=== PATIENT | female | born 1975 | race Caucasian/White ===

== ENCOUNTER 2018-02-28 12:25 | Inpatient (IN) | payer BC ==
[2018-02-28] MEDS ORDERED: Iohexol 300 MG/ML 30 ML Bottle PO ONE (12:54)
[2018-02-28] MEDS ORDERED: Sodium Chloride 0.9% 10 ML Syringe FLUSH ONE (13:03)
[2018-02-28] MEDS ORDERED: Sodium Chloride 0.9% 100 ML IV ONE (13:03)
[2018-02-28] MEDS ORDERED: Iopamidol 612 MG/ML 100 ML Bottle IV SCH (13:15)
[2018-02-28] MEDS ORDERED: Naloxone 0.4 MG/ML SDV IV PRN (13:22)
[2018-02-28] MEDS ORDERED: HYDROmorphone/Normal Saline 15 MG/30 ML PCA IV PRN (13:22)
[2018-02-28] MEDS ORDERED: Acetaminophen 650 MG Supp RECTAL PRN (13:33)
[2018-02-28] MEDS ORDERED: Acetaminophen 325 MG Tab PO PRN (13:34)
[2018-02-28] MEDS: Dextrose 5%-Lactated Ringers 1,000 ML IV SCH ×2 (13:49→22:23)
[2018-02-28] MEDS: Ondansetron 4 MG/2 ML SDV IVPUSH PRN ×2 (13:56→16:32)
[2018-02-28] MEDS: Pantoprazole 40 MG Vial IV SCH (14:46)
[2018-02-28] MEDS ORDERED: Tamsulosin 0.4 MG Cap.ER PO PRN (16:01)
[2018-02-28] MEDS ORDERED: Acetaminophen/Caffeine 500-65 MG Tab PO PRN (16:01)
[2018-02-28] MEDS ORDERED: MVI, Adult with Vitamin K 10 ML, Thiamine 100 MG, Magnesium Sulfate 2 GM, Folic Acid 1 ... IV ONE ×5 (16:03)
--- NOTE | 2018-02-28 16:03 | CT ---
Abdomen Pelvis w Cont CLINICAL HISTORY: Partial small bowel obstruction COMPARISON: None. TECHNIQUE: Axial tomographic images are obtained from the dome of the diaphragm to the pubic symphysi s without IV contrast enhancement. Water soluble oral contrast was used. Auto dosage reduction and it erative reconstruction techniques employed. FINDINGS: The lung bases are clear. The liver shows no mass or biliary dilatation. The gallbladder co ntains some biliary sludge. The spleen has a normal size and shape. Patient has had a previous [place]-Y gastric bypass. The there is no evidence of obstruction. There is a segment of thickened bowel in the anterior mid abdomen which appears to be transverse colon. The there is impression of some enhan cement of the bowel wall. The the ascending and descending colon have a normal appearance. Anterior a bdominal wall is intact. The pancreas shows no inflammatory change. The adrenal glands appear normal bilaterally. The kidneys show no mass or hydronephrosis. There are prominent extrarenal pelvises. The aorta has a normal conto ur. There is no suspicious retroperitoneal adenopathy. IMPRESSION: Patient is status post the [place]-en-Y gastric bypass. There is no evidence of obstruction Thickening and some enhancement of the transverse colon suggests colitis. Ascending and descending co fer as well as rectosigmoid colon have a more normal normal contour.
[2018-02-28] MEDS: Metoclopramide 10 MG/2 ML SDV IV SCH ×2 (17:10→22:23)
--- NOTE | 2018-02-28 18:49 | PCM.HP ---
H&P History of Present Illness - General Date of Service: 02/28/18 Admit Problem/Dx: Source of Information: Patient, RN Notes Reviewed History Limitations: Reports: No Limitations - History of Present Illness Initial Comments - Free Text/Narative: Ms. Aguero is a 42-year-old woman who I been asked to see by Dr. Aguilar for further suggestions concerning evaluation and management of abdominal pain. Pain started yesterday and was described as a dull ache occurring in her right upper quadrant of the abdomen. Through the day progressed and became more intense and then she began to develop nausea with vomiting. She was seen and evaluated in the emergency department in [facility], CT scan was obtained which showed no acute abnormalities. After hydration and pain medication she did feel somewhat improved. She was discharged home, with the recommendation that she be seen for follow-up today. When she awoke this morning noted that she had an ongoing dull ache in the right upper quadrant of her abdomen, she attempted to eat a of toast. Pain rapidly became more intense again and associated with nausea and vomiting. She was seen and evaluated in the bariatric clinic and admitted for hydration and pain control. She has had one bowel movement in the past 36 hours which was somewhat loose, but no blood. She denies any fevers or chills but has had intermittent sweats. She is recently been taking prednisone for management of poison angelina, but has not taken antibiotics over the past [address] scan of the abdomen and pelvis was repeated today, it shows thickening in the transverse colon but no other significant abnormalities. Abdomen Pain Score (Numeric/FACES): 5 - Related Data Allergies/Adverse Reactions: Allergies Allergy/AdvReac Type Severity Reaction Status Date / Time erythromycin lactobionate Allergy Other Verified 11/26/15 10:24 [From Erythrocin] latex Allergy Rash Verified 11/28/15 08:06 prednisone Allergy Cannot Verified 02/28/18 15:13 Remember environmental Allergy Intermediate Itching Uncoded 02/28/18 15:13 Home Medications: Home Meds Acetaminophen/Caffeine [Excedrin Tension Headache] 1 tab PO DAILY PRN 11/26/15 [ History] Ergocalciferol (Vitamin D2) [Vitamin D2] 50,000 unit PO ASDIRECTED 11/26/15 [ History] Naproxen Sodium [Aleve] 440 mg PO DAILY PRN 11/26/15 [History] SUMAtriptan Succinate [Imitrex] 100 mg PO ASDIRECTED PRN 11/26/15 [History] Cyanocobalamin (Vitamin B12) [Vitamin B12] 1,000 mcg PO DAILY 11/28/15 [History] Multivitamin with Minerals [Multiple Vitamin] 1 tab PO DAILY 11/28/15 [History] Tamsulosin [Tamsulosin 24 Hr] 0.4 mg PO DAILY PRN 11/28/15 [History] predniSONE [Prednisone] 30 mg PO DAILY 02/28/18 [History] Past Medical History HEENT History: Reports: Impaired Vision Cardiovascular History: Reports: High Cholesterol, Hypertension Respiratory History: Reports: Bronchitis, Recurrent, Sleep Apnea Gastrointestinal History: Reports: Chronic Constipation Genitourinary History: Reports: UTI, Recurrent 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 History: Reports: Endometriosis, Musculoskeletal History: Reports: Arthritis, RA Neurological History: Reports: Migraines Psychiatric History: Reports: Anxiety, Depression Endocrine/Metabolic History: Reports: Obesity/BMI 30+ Hematologic History: Reports: B12 Deficiency Immunologic History: Reports: Other (See Below) Other Immunologic History: RA - Infectious Disease History Infectious Disease History: Reports: Chicken Pox, Shingles - Past Surgical History GI Surgical History: Reports: Bariatric Procedure Female Surgical History: Reports: Hysterectomy Endocrine Surgical History: Reports: None Neurological Surgical History: Reports: None Musculoskeletal Surgical History: Reports: None Social & Family History - Tobacco Use Smoking Status *Q: Never Smoker Second Hand Smoke Exposure: No - Caffeine Use Caffeine Use: Reports: None - Recreational Drug Use Recreational Drug Use: No H&P Review of Systems - Review of Systems: Review Of Systems: See Below General: Reports: Weakness, Diaphoresis, Decreased Appetite. Denies: Fever, Chills HEENT: Reports: No Symptoms Pulmonary: Reports: No Symptoms Cardiovascular: Reports: No Symptoms Gastrointestinal: Reports: Abdominal Pain, Decreased Appetite, Nausea, Vomiting. Denies: Black Stool, Bloody Stool, Constipation, Diarrhea, Difficulty Swallowing, Distension Genitourinary: Reports: No Symptoms Musculoskeletal: Reports: Joint Pain Skin: Reports: No Symptoms Psychiatric: Reports: No Symptoms Neurological: Reports: No Symptoms Hematologic/Lymphatic: Reports: No Symptoms Immunologic: Reports: No Symptoms Exam - Exam Exam: See Below - Vital Signs Vital Signs: Last Vital Signs Temp 96.4 F 02/28/18 16:28 Pulse 91 02/28/18 16:28 Resp 18 02/28/18 16:28 BP 150/94 H 02/28/18 16:28 Pulse Ox 98 02/28/18 16:28 Weight: 163 lb 1.6 oz - Exam Quality Assessment: DVT Prophylaxis General: Alert, Oriented, Cooperative, Moderate Distress Neck: Supple, Trachea Midline, +2 Carotid Pulse wo Bruit Lungs: Clear to Auscultation, Normal Respiratory Effort Cardiovascular: Regular Rate, Regular Rhythm, Normal S1, Normal S2 GI/Abdominal Exam: Soft, No Organomegaly, No Distention, Guarding, Tender. No: Rigid, Rebound Back Exam: Normal Inspection, Full Range of Motion Extremities: Non-Tender, No Pedal Edema - Patient Data Lab Results Last 24 hrs: Laboratory Results - last 24 hr 02/28/18 02/28/18 Range/Units 13:17 13:17 WBC 9.9 (4.5-11.0) K/uL RBC 4.62 (3.30-5.50) M/uL Hgb 14.1 (12.0-15.0) g/dL Hct 40.8 (36.0-48.0) % MCV 88 (80-98) fL MCH 31 (27-31) pg MCHC 35 (32-36) % Plt Count 344 (150-400) K/uL Neut % (Auto) 75 H (36-66) % Lymph % (Auto) 22 L (24-44) % Milam % (Auto) 3 (2-6) % Eos % (Auto) 0 L (2-4) % Baso % (Auto) 0 (0-1) % Sodium 141 (140-148) mmol/L Potassium 4.0 (3.6-5.2) mmol/L Chloride 106 (100-108) mmol/L Carbon Dioxide 27 (21-32) mmol/L Anion Gap 7.8 (5.0-14.0) mmol/L BUN 12 (7-18) mg/dL Creatinine 0.8 (0.6-1.0) mg/dL Est Cr Clr Drug Dosing 74.23 mL/min Estimated GFR (MDRD) > 60 (>60) Glucose 103 (74-106) mg/dL Calcium 8.3 L (8.5-10.1) mg/dL Phosphorus 3.3 (2.5-4.9) mg/dL Magnesium 2.0 (1.8-2.4) mg/dL Total Bilirubin 0.5 (0.2-1.0) mg/dL AST 12 L (15-37) U/L ALT 23 (12-78) U/L Alkaline Phosphatase 83 (46-116) U/L C-Reactive Protein 0.11 (0.0-0.3) mg/dL Total Protein 6.6 (6.4-8.2) g/dL Albumin 3.5 (3.4-5.0) g/dL Globulin 3.1 (2.3-3.5) g/dL Albumin/Globulin Ratio 1.1 L (1.2-2.2) Result Diagrams: 02/28/18 13:17 02/28/18 13:17 *Q Meaningful Use (ADM) - VTE *Q VTE Pharmacological Contraindications *Q: Patient Scheduled Surgery - VTE Risk Assess *Q Each Risk Factor Represents 1 Point: Age 41 - 59 years, Obesity ( BMI > 25 kg/m2 ) Total Score 1 Point Risk Factors: 2 Each Risk Factor Represents 2 Points: None Total Score 2 Point Risk Factors: 0 Each Risk Factor Represents 3 Points: None Total Score 3 Point Risk Factors: 0 Each Risk Factor Represents 5 Points: None Total Score 5 Point Risk Factors: 0 Venous Thromboembolism Risk Factor Score *Q: 2 Problem List Initiated/Reviewed/Updated: Yes Orders Last 24hrs: Active Orders 24 hr Category Date Time Status Patient Status [ADT] Routine ADT 02/28/18 11:55 Active Intake and Output Strict [RC] QSHIFT Care 02/28/18 16:04 Active Notify Provider Consults [RC] ASDIRECTED Care 02/28/18 16:56 Active Overnight Pulse Oximetry [RC] Click to Edit Care 02/28/18 17:52 Active Up ad Michelle [RC] ASDIRECTED Care 02/28/18 12:52 Active Vital Signs [RC] Q4H Care 02/28/18 12:52 Active Consult to Physician [CONS] Urgent Cons 02/28/18 16:52 Ordered Cholescintigraphy w Pharm Int [NM] Timed Exams 02/28/18 16:51 Ordered Acetaminophen [Tylenol] Med 02/28/18 13:34 Active 650 mg PO Q4H PRN Acetaminophen [Tylenol] Med 02/28/18 13:33 Active 650 mg RECTAL Q4H PRN Acetaminophen/Caffeine [Excedrin Tension Headache] Med 02/28/18 16:01 Active 1 tab PO DAILY PRN Ampicillin/Sulbactam Na [Unasyn] 1.5 gm Med 02/28/18 18:45 Ordered Sodium Chloride 0.9% [Normal Saline] 50 ml IV Q6HR Aztreonam [Azactam] 1 gm Med 02/28/18 22:00 Ordered Sodium Chloride 0.9% [Normal Saline] 100 ml IV Q8HR Dextrose 5%-Lactated Ringers 1,000 ml Med 02/28/18 13:45 Active IV ASDIRECTED HYDROmorphone/Normal Saline [Dilaudid CHALK CUTTER 15 MG in NS Med 02/28/18 13:22 Active 30 ML] 0 mg IV ASDIRECTED PRN Metoclopramide [Reglan] Med 02/28/18 17:00 Active 10 mg IV Q6H Naloxone [Narcan] Med 02/28/18 13:22 Active 0.1 mg IV ASDIRECTED PRN Ondansetron [Zofran] Med 02/28/18 13:35 Active 4 mg IVPUSH Q4H PRN Pantoprazole [ProTONIX IV] Med 02/28/18 14:00 Active 40 mg IV Q24H SUMAtriptan Med 02/28/18 16:01 Active 100 mg PO ASDIRECTED PRN Tamsulosin [Flomax] Med 02/28/18 16:01 Active 0.4 mg PO DAILY PRN Pulse Oximetry Continuous Monitoring [OM.PC] Routine Oth 02/28/18 17:52 Ordered Sequential Compression Device [OM.PC] Routine Oth 02/28/18 12:52 Ordered Resuscitation Status Routine Resus Stat 02/28/18 12:52 Ordered Medication Orders Acetaminophen (Tylenol) 650 mg RECTAL Q4H PRN PRN Reason: ANALGESIA/FEVER Acetaminophen (Tylenol) 650 mg PO Q4H PRN PRN Reason: ANALGESIA/FEVER Acetaminophen/Caffeine (Excedrin Tension Headache) 1 tab PO DAILY PRN PRN Reason: Headache Hydromorphone HCl (Dilaudid Data Virtualization Consultant 15 Mg In Ns 30 Ml) 0 mg IV ASDIRECTED PRN; Protocol PRN Reason: CHALK CUTTER PAIN CONTROL Last Admin: 02/28/18 13:46 Dose: 15 mg Dextrose/Lactated Ringer's (Dextrose 5%-Lactated Ringers) 1,000 mls @ 150 mls/ hr IV ASDIRECTED ASTER Last Admin: 02/28/18 13:49 Dose: 150 mls/hr Metoclopramide HCl (Reglan) 10 mg IV Q6H [facility] Last Admin: 02/28/18 17:10 Dose: 10 mg Naloxone HCl (Narcan) 0.1 mg IV ASDIRECTED PRN PRN Reason: decreased respiratory rate Ondansetron HCl (Zofran) 4 mg IVPUSH Q4H PRN PRN Reason: NAUSEA Last Admin: 02/28/18 16:32 Dose: 4 mg Admin: 02/28/18 13:56 Dose: 4 mg Pantoprazole Sodium (Protonix Iv) 40 mg IV Q24H [facility] Last Admin: 02/28/18 14:46 Dose: 40 mg Sumatriptan Succinate (Sumatriptan) 100 mg PO ASDIRECTED PRN PRN Reason: Headache Tamsulosin HCl (Flomax) 0.4 mg PO DAILY PRN PRN Reason: Allergies Assessment/Plan Comment:: ASSESSMENT AND RECOMMENDATIONS ACUTE CHOLECYSTITIS-symptoms and pain and nausea would be very consistent with this. CT scan shows possible inflammation of the transverse colon but she is not had significant diarrhea, CO2 level and anion gap are within normal range. White blood cell count is normal and no other significant abnormalities were identified on CT scan. -CCK stimulated HIDA scan in a.m. -Initiate IV antibiotic therapy; Unasyn and Azactam -Surgical follow-up per Dr. Aguilar -Continue current pain medications and anti-emetic therapy
[2018-02-28] MEDS: Ampicillin/Sulbactam Na 1.5 GM in Sodium Chloride 0.9% 50 ML IV SCH (19:57)
[2018-02-28] MEDS: Aztreonam 1 GM in Sodium Chloride 0.9% 100 ML IV SCH (22:22)
[2018-03-01] MEDS: Ampicillin/Sulbactam Na 1.5 GM in Sodium Chloride 0.9% 50 ML IV SCH ×5 (01:57→20:46)
[2018-03-01] MEDS: Aztreonam 1 GM in Sodium Chloride 0.9% 100 ML IV SCH (05:32)
[2018-03-01] MEDS: Metoclopramide 10 MG/2 ML SDV IV SCH ×4 (05:32→22:02)
--- NOTE | 2018-03-01 07:15 | HP ---
HISTORY OF PRESENT ILLNESS: Alejandra presented to the clinic today with severe right mid and lower quadrant abdominal pain. She had a sleeve gastrectomy on 11/28/2015 with a weight loss of 41.4 pounds. BMI is 28.62. She had poison angelina on 02/24/2018 and was started on prednisone. She was taking a tapering dose. She states yesterday afternoon around 1:00 p.m., she developed some right-sided abdominal pain, progressively had increased in intensity. She had a friend bring her to the emergency room around 9:30 p.m. She states that she had 1 L of normal saline and IV Dilaudid. It did help the pain for about [address] scan was done that was negative, and she was sent home and told to come back to the clinic if the pain increased. She said the Dilaudid helped for about 4 hours, and then about the time she was ready to leave, the pain came back. She states that she went home, slept pretty good, then called the Surgery Department and felt some dehydration and wanted a 2nd opinion on the pain. She was coming to [place] for IV fluids and prior to leaving [place], ate a half a piece of toast with peanut butter and a few miles from the clinic, the pain increased in intensity to 10/10. She states that the pain is in the mid right quadrant directly to the right of umbilicus. The pain will radiate down a little bit in that area, pretty much stable. It is associated with some nausea and dry heaves. Pain is sharp and intense. Last BM was yesterday. States she stopped passing any flatus last night. Eating did aggravate the pain today. Nothing will alleviate the pain. No other associated signs and symptoms. REVIEW OF SYSTEMS: CONSTITUTIONAL: No fever, chills, night sweats, or fatigue. SKIN: Resolving poison angelina rash on face. Otherwise, no rash, pigment changes, lesions, or changes in moles. HEENT: Denies headache, dizziness, or loss of coordination. CARDIOVASCULAR: No chest pain or palpitation. RESPIRATORY: No cough or shortness of breath. ENDOCRINE: No history of polyuria or polydipsia, skin or hair changes, heat or cold intolerance. HEMATOLOGIC: Iron deficiency anemia. LYMPHATIC: Denies any lymph node tenderness or swelling. GASTROINTESTINAL: As above. GENITOURINARY: No UTI signs and symptoms. MUSCULOSKELETAL: Positive for joint pain and swelling intermittently. History of rheumatoid arthritis. NEUROLOGIC: No neurological symptoms, spells, or memory changes. PSYCHIATRIC: No significant anxiety, depression, or panic attacks. Denies any insomnia. Remainder of review of systems negative for any pertinent positives and negatives. CURRENT MEDICATIONS: Prednisone 30 mg once a day on a tapering dose; Prilosec 40 mg one tablet b.i.d.; vitamin B12, 1000 mcg 1 mL into muscle every 14 days; vitamin D 50,000 international units one capsule on Tuesday, Tuesday, and Tuesday; methotrexate 20 mg/0.4 mL solution, inject 0.8 mg under the skin one time a week; folic acid 1 mg, take 2 mg by mouth once daily; calcium citrate 500/400 mg chewable; pediatric multivitamin chewable, take 1 tablet twice a day. PAST MEDICAL HISTORY: Anxiety, depression, hypertension, hyperlipidemia, joint pain, migraines, sleep apnea, and rheumatoid arthritis. PAST SURGICAL HISTORY: 1. Excision of abdominal tumor over 5 cm, 11/28/2015. 2. Total hysterectomy, 2002. 3. 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 4. Laparoscopic sleeve gastrectomy, date of surgery 11/28/2015. Consult weight 206 pounds. Height 5 feet 3.9 inches. Current weight 166 pounds 3.2 ounces, and BMI is 28.62. 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 Smoking, no history of smoking. Caffeine use, negative. Alcohol use, rare. Carbonation, none. FAMILY HISTORY: Positive for obesity, paternal grandfather. Diabetes, paternal grandfather. Cardiovascular disease, mother and maternal grandmother. Cancer, father and paternal grandfather. Arthritis, maternal grandfather. Hypertension, mother and maternal grandmother. PHYSICAL EXAMINATION: GENERAL: Alejandra Aguero is a pleasant 42-year-old female who is in moderate distress. VITAL SIGNS: Weight 166 pounds. Height is 5 feet 3.9 inches. TPR is 98.4/72/16. Blood pressure 142/80. HEENT: Negative. NECK: Supple. Negative lymphadenopathy,thyromegaly. HEART: Regular rate and rhythm without murmur, gallop, or rub. LUNGS: Lear to auscultation in all 4 jarquin. No wheezing, rales, or rhonchi. ABDOMEN: Intense abdominal pain to palpation to the right of the umbilicus and radiates down to the right lower abdomen. EXTREMITIES: Negative for peripheral edema. SKIN: Faint, pink rash noted on face. NEUROLOGIC: Cranial nerves II through XII intact. Deep tendon reflexes are 2+ and equal bilaterally. PSYCHIATRIC: Mood and affect appropriate, orientated x3, and memory intact. ASSESSMENT: 1. Right lower quadrant abdominal pain. 2. History of sleeve gastrectomy. 3. Postoperative malabsorption. 4. Vitamin D deficiency. 5. Vitamin B12 deficiency. 6. Mixed hyperlipidemia. 7. Essential hypertension. 8. Poison angelina dermatitis. 9. On prednisone therapy. ALLERGIES: HUMIRA, ENBREL, ERYTHROMYCIN, LATEX, AND PREDNISONE. OF NOTE, SHE IS ON PREDNISONE, AND SHE STATES THAT SOMETIMES CAN CAUSE SOME RASH AND SWELLING. CODE STATUS: Full. DIET: Clear liquids. PLAN: 1. Admit to [facility]. Length of stay, 3 nights, 4 days. 2. Up ad diamante. 3. Vital signs q.4 hours. 4. D5 LR IV at 150 mL per hour. 5. Check CBC, CMP, mag, phos, and C-reactive protein. 6. Tylenol 650 mg p.o. every 4 hours p.r.n. pain or fever. 7. SCDs. 8. Rx Protonix 40 mg IV q.[address] of abdomen and pelvis, 100 mL water-soluble contrast and IV contrast stat. Call with results. 10.Rx Zofran 4 mg IV q.4 hours p.r.n. nausea. 11.Rx lactated Ringer's is 1 amp MVI, 2 g magnesium, 1 mg folic acid, 100 mg thiamine, infused over 1 hour. 12.Rx Dilaudid TOWING PILOT 0.2 demand dose, lockout interval 10 minutes. 13.We will evaluate p.r.n. or in a.m. Called at 4:[address] scan which was done around 1:30. No results have been called yet, looking for the results of the CT scan at the time of this dictation. Tia Humphreys PA-C /[id number]
--- NOTE | 2018-03-01 07:21 | PCM.PN ---
- General Info Date of Service: 03/01/18 Admission Dx/Problem (Free Text): Right abdominal pain, probable acute cholecystitis. Subjective Update: Patient is experiencing less pain than yesterday although she states this may be due to not having anything to eat. She is up, ambulating and voiding. Vitas were stable overnight. Her pain is currently controlled although she is automatic bandsaw tender to palpation on the right abdomen. She will be having a HIDA scan this am for further evaluation. Functional Status: Reports: Pain Controlled (Tenderness of right abdomen upon palpation. ), Tolerating Diet, Ambulating, Urinating, Incentive Spirometry - Review of Systems General: Reports: No Symptoms HEENT: Reports: No Symptoms Pulmonary: Reports: No Symptoms Cardiovascular: Reports: No Symptoms Gastrointestinal: Reports: Abdominal Pain Genitourinary: Reports: No Symptoms Musculoskeletal: Reports: No Symptoms Skin: Reports: No Symptoms Neurological: Reports: No Symptoms Psychiatric: Reports: No Symptoms Systems Review Comment:: Remainder of ROS is negative for any pertinent positives or negatives. - Patient Data Vitals - Most Recent: Last Vital Signs Temp 95.7 F 03/01/18 02:42 Pulse 69 03/01/18 02:42 Resp 16 03/01/18 02:42 BP 127/75 03/01/18 02:42 Pulse Ox 95 03/01/18 02:42 Weight - Most Recent: 163 lb 1.6 oz I&O - Last 24 Hours: Intake & Output 02/28/18 03/01/18 03/01/18 22:59 06:59 14:59 Intake Total 150 1806 Output Total 650 650 Balance -500 1156 Lab Results Last 24 Hours: Laboratory Results - last 24 hr 02/28/18 02/28/18 02/28/18 Range/Units 13:15 13:17 13:17 WBC 9.9 (4.5-11.0) K/uL RBC 4.62 (3.30-5.50) M/uL Hgb 14.1 (12.0-15.0) g/dL Hct 40.8 (36.0-48.0) % MCV 88 (80-98) fL MCH 31 (27-31) pg MCHC 35 (32-36) % Plt Count 344 (150-400) K/uL Neut % (Auto) 75 H (36-66) % Lymph % (Auto) 22 L (24-44) % Braxton % (Auto) 3 (2-6) % Eos % (Auto) 0 L (2-4) % Baso % (Auto) 0 (0-1) % Sodium 141 (140-148) mmol/L Potassium 4.0 (3.6-5.2) mmol/L Chloride 106 (100-108) mmol/L Carbon Dioxide 27 (21-32) mmol/L Anion Gap 7.8 (5.0-14.0) mmol/L BUN 12 (7-18) mg/dL Creatinine 0.8 (0.6-1.0) mg/dL Est Cr Clr Drug Dosing 74.23 mL/min Estimated GFR (MDRD) > 60 (>60) Glucose 103 (74-106) mg/dL Calcium 8.3 L (8.5-10.1) mg/dL Phosphorus 3.3 (2.5-4.9) mg/dL Magnesium 2.0 (1.8-2.4) mg/dL Total Bilirubin 0.5 (0.2-1.0) mg/dL AST 12 L (15-37) U/L ALT 23 (12-78) U/L Alkaline Phosphatase 83 (46-116) U/L C-Reactive Protein 0.11 (0.0-0.3) mg/dL Total Protein 6.6 (6.4-8.2) g/dL Albumin 3.5 (3.4-5.0) g/dL Globulin 3.1 (2.3-3.5) g/dL Albumin/Globulin Ratio 1.1 L (1.2-2.2) Lipase 179 (73-393) U/L Med Orders - Current: Current Medications Acetaminophen (Tylenol) 650 mg RECTAL Q4H PRN PRN Reason: ANALGESIA/FEVER Acetaminophen (Tylenol) 650 mg PO Q4H PRN PRN Reason: ANALGESIA/FEVER Acetaminophen/Caffeine (Excedrin Tension Headache) 1 tab PO DAILY PRN PRN Reason: Headache Hydromorphone HCl (Dilaudid Fourth Hand 15 Mg In Ns 30 Ml) 0 mg IV ASDIRECTED PRN; Protocol PRN Reason: 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 Last Admin: 02/28/18 13:46 Dose: 15 mg Dextrose/Lactated Ringer's (Dextrose 5%-Lactated Ringers) 1,000 mls @ 150 mls/ hr IV ASDIRECTED [facility] Last Admin: 02/28/18 22:23 Dose: 150 mls/hr Ampicillin Sodium/Sulbactam (Sodium 1.5 gm/ Sodium Chloride) 50 mls @ 100 mls/ hr IV Q6H [facility] Last Admin: 03/01/18 01:57 Dose: 100 mls/hr Aztreonam 1 gm/ Sodium (Chloride) 100 mls @ 200 mls/hr IV Q8H [facility] Last Admin: 03/01/18 05:32 Dose: 200 mls/hr Metoclopramide HCl (Reglan) 10 mg IV Q6H [facility] Last Admin: 03/01/18 05:32 Dose: 10 mg Naloxone HCl (Narcan) 0.1 mg IV ASDIRECTED PRN PRN Reason: decreased respiratory rate Ondansetron HCl (Zofran) 4 mg IVPUSH Q4H PRN PRN Reason: NAUSEA Last Admin: 02/28/18 16:32 Dose: 4 mg Pantoprazole Sodium (Protonix Iv) 40 mg IV Q24H [facility] Last Admin: 02/28/18 14:46 Dose: 40 mg Sumatriptan Succinate (Sumatriptan) 100 mg PO ASDIRECTED PRN PRN Reason: Headache Tamsulosin HCl (Flomax) 0.4 mg PO DAILY PRN PRN Reason: Allergies Discontinued Medications Sodium Chloride (Normal Saline) 100 mls @ 3.5 mls/sec IV ONETIME ONE Stop: 02/28/18 13:04 Last Admin: 02/28/18 13:37 Dose: 3.5 mls/sec Multivitamins/Minerals 10 ml/Thiamine HCl 100 mg/ Magnesium Sulfate 2 gm/ Folic Acid 1 mg / Lactated Ringer's 1,015.2 mls @ 501.609 mls/hr IV ONETIME ONE Stop: 02/28/18 18:04 Last Admin: 02/28/18 16:32 Dose: 501.609 mls/hr Iohexol (Omnipaque) 20 ml PO ONETIME ONE Stop: 02/28/18 12:55 Last Admin: 02/28/18 13:48 Dose: 20 ml Iopamidol (Isovue-300 (61%)) 100 ml IV . DIRECTED [facility] Stop: 02/28/18 14:00 Last Admin: 02/28/18 13:37 Dose: 100 ml Sodium Chloride (Saline Flush) 10 ml FLUSH ONETIME ONE Stop: 02/28/18 13:04 Last Admin: 02/28/18 13:48 Dose: 10 ml - Exam General: Alert, Oriented, Cooperative, No Acute Distress HEENT: Pupils Equal, Mucous Membr. Moist/[place] Neck: Supple Lungs: Clear to Auscultation, Normal Respiratory Effort Cardiovascular: Regular Rate, Regular Rhythm GI/Abdominal Exam: No Mass, Tender Extremities: Normal Range of Motion Skin: Warm, Dry, Intact Neurological: No New Focal Deficit Psy/Mental Status: Alert, Normal Affect, Normal Mood - Problem List Review Problem List Initiated/Reviewed/Updated: Yes - Assessment Assessment:: Abdominal pain, probable acute cholecystitis. - Plan Plan:: 1. HIDA scan this am 2. Continue scheduled Reglan 3. Continue Prednisone for Poison Vanna 4. Will reevaluate prn or in the am 5. Plan for surgery in the am
[2018-03-01] MEDS: Dextrose 5%-Lactated Ringers 1,000 ML IV SCH (09:58)
[2018-03-01] MEDS: LORazepam 2 MG/ML SDV IVPUSH PRN ×2 (12:06→17:37)
[2018-03-01] MEDS: Aztreonam/Dextrose-Water 1 GM in Premix Bag 1 BAG IV SCH ×2 (13:57→22:02)
[2018-03-01] MEDS: Pantoprazole 40 MG Vial IV SCH (14:01)
--- NOTE | 2018-03-01 14:20 | NM ---
HEPATOBILIARY SCAN WITH EJECTION FRACTION: Clinical History: Abdominal pain and nausea Multiple images of the hepatobiliary system were obtained following the IV injection of 5.23 mCi of t echnetium 99m Choletec. 60 minutes into the study the patient was given 1.48mcg of Kinevac via slow I V push IV. Patient experienced abdominal pain and nausea post injection. Quantitative analysis of the gallbladder was performed. Findings: There is a normal pattern of hepatic uptake. Biliary activity is seen at 15minutes. Gallbla dder activity is seen at 15minutes. Intestinal activity is seen after CCK injection.Following the Kin evac infusion the gallbladder ejection fraction was calculated at 2.8%. Impression:Essentially normal visualization of the biliary tree The gallbladder ejection fraction wasabnormally low at 2.8%
[2018-03-01] MEDS: predniSONE 10 MG Tab PO SCH (14:57)
[2018-03-02] MEDS: Ampicillin/Sulbactam Na 1.5 GM in Sodium Chloride 0.9% 50 ML IV SCH ×4 (02:15→21:09)
[2018-03-02] MEDS: Dextrose 5%-Lactated Ringers 1,000 ML IV SCH ×2 (02:23→17:03)
[2018-03-02] MEDS: LORazepam 2 MG/ML SDV IVPUSH PRN ×3 (03:17→11:52)
[2018-03-02] MEDS: Metoclopramide 10 MG/2 ML SDV IV SCH ×4 (05:16→21:59)
[2018-03-02] MEDS: Aztreonam/Dextrose-Water 1 GM in Premix Bag 1 BAG IV SCH ×3 (05:16→21:09)
[2018-03-02] MEDS ORDERED: Bupivacaine 0.5%/EPINEPHrine 1:200,000 50 ML MDV ONE (06:45)
[2018-03-02] MEDS ORDERED: METHYLPREDNISOLONE SOD SUCC IV ONE ×2 (06:46)
[2018-03-02] MEDS ORDERED: DEXTROSE 5% IV ONE ×2 (06:46)
[2018-03-02] MEDS ORDERED: WATER IV ONE ×2 (06:46)
[2018-03-02] MEDS ORDERED: methylPREDNISolone Sodium Succinate 125 MG/2 ML SDV IV ONE ×2 (08:00→12:30)
--- NOTE | 2018-03-02 08:25 | PN ---
DATE OF SERVICE: 03/02/2018 SUBJECTIVE: Alejandra is n.p.o. She will be having a laparoscopic cholecystectomy to follow today. Pain has been managed. Vital signs have been stable. She did get one dose of Ativan last evening for some anxiety and slept well after that. REVIEW OF SYSTEMS: Remainder of review of systems negative for any pertinent positives and negatives. OBJECTIVE: GENERAL: Alejandra is a 42-year-old female, very sleepy this morning, but orientated. VITAL SIGNS: TPR is 96.4, 84, 16, and blood pressure is 153/101. HEENT: Negative. NECK: Supple. HEART: Regular rate and rhythm. LUNGS: Clear. ABDOMEN: Remains to be tender in the right upper and mid-abdominal quadrant. EXTREMITIES: SCDs are on. There is no peripheral edema. ASSESSMENT: Biliary dyskinesia. PLAN: 1. Rx Solu-Medrol 100 mg IV now. 2. Solu-Medrol 100 mg IV on-call to OR. 3. We will evaluate p.r.n. 4. Orders to be written postoperatively. Tia Humphreys PA-C /[id number]
[2018-03-02] MEDS: predniSONE 10 MG Tab PO SCH (08:33)
[2018-03-02] MEDS ORDERED: Propofol 200 MG/20 ML SDV ONE (10:23)
[2018-03-02] MEDS ORDERED: Midazolam 1 MG/ML 2 ML SDV ONE (10:23)
[2018-03-02] MEDS ORDERED: fentaNYL 100 MCG/2 ML SDV ONE (10:23)
[2018-03-02] MEDS ORDERED: fentaNYL 250 MCG/5 ML SDV ONE (11:52)
[2018-03-02] MEDS ORDERED: Ondansetron 4 MG/2 ML SDV ONE (11:54)
[2018-03-02] MEDS ORDERED: Dexamethasone 4 MG/ML SDV ONE (11:54)
[2018-03-02] MEDS ORDERED: Rocuronium 50 MG/5 ML Vial ONE (11:54)
[2018-03-02] MEDS ORDERED: Glycopyrrolate 0.2 MG/ML 5 ML MDV ONE (11:54)
[2018-03-02] MEDS ORDERED: Neostigmine Methylsulfate 1 MG/ML 5 ML Syringe ONE (11:54)
[2018-03-02] MEDS ORDERED: methylPREDNISolone Sodium Succinate 2 GM Vial IV ONE (12:00)
[2018-03-02] MEDS ORDERED: Ropivacaine 36 ML, Dexamethasone 8 MG, EPINEPHrine 0.4 MG, Sodium Chloride 0.9% 41.6 ML NERVRT SCH ×4 (13:00)
[2018-03-02] MEDS ORDERED: Ketamine 500 MG/5 ML MDV IV SCH (13:00)
[2018-03-02] MEDS ORDERED: Coagulation Factor VIIa Recombinant (per MCG) 2 MG Vial IVPUSH ONE (14:45)
[2018-03-02] MEDS: Pantoprazole 40 MG Vial IV SCH (15:02)
[2018-03-03] MEDS: HYDROmorphone 2 MG Tab PO PRN ×2 (01:34→07:56)
[2018-03-03] MEDS: Ampicillin/Sulbactam Na 1.5 GM in Sodium Chloride 0.9% 50 ML IV SCH ×2 (02:57→08:01)
[2018-03-03] MEDS: LORazepam 2 MG/ML SDV IVPUSH PRN (02:57)
[2018-03-03] MEDS: Aztreonam/Dextrose-Water 1 GM in Premix Bag 1 BAG IV SCH (05:02)
[2018-03-03] MEDS: Dextrose 5%-Lactated Ringers 1,000 ML IV SCH (05:02)
[2018-03-03] MEDS: Metoclopramide 10 MG/2 ML SDV IV SCH (05:02)
[2018-03-03 07:38] VITALS: BP 141/89
[2018-03-03] MEDS ORDERED: predniSONE 20 MG Tab PO SCH (09:00)
[2018-03-03] MEDS ORDERED: Pantoprazole 40 MG Tab.CR PO SCH (11:30)
--- NOTE | 2018-03-04 03:03 | DISCH ---
ADMISSION DIAGNOSES: 1. Severe right mid and lower quadrant abdominal pain. 2. SP sleeve gastrectomy. 3. Unspecified surgical malabsorption. 4. Unspecified surgical malabsorption. 5. Vitamin D deficiency. 6. Recent poison angelina, treated with prednisone. 7. Mixed hyperlipidemia. 8. Hypertension. 9. Rheumatoid arthritis. DISCHARGE DIAGNOSES: Diagnostic laparoscopy with cholecystectomy and excision of enlarged toro hepatic lymph node for subacute/chronic cholecystitis and enlarged toro hepatitis lymph node. Date of surgery is 03/02/2018. HISTORY: Alejandra Aguero is a 42-year-old female who presented to the clinic with severe right and lower quadrant abdominal pain on 02/28/2018. Alejandra was seen in [facility]. A CT was negative. She continued to have increased amount of pain. She was admitted to [facility] on 02/28/2018. A CT scan was obtained and showed sludge in the gallbladder. On 03/01/2018, she had a HIDA scan, which was symptomatic, given the cholecystitis, and her ejection fraction was 2.8. After preoperative evaluation, discussion of possible risks and possible complications, she wished to proceed with surgical procedure. Alejandra had her surgery on 03/02/2018. She had no operative complications. On postop day #1, she was able to be discharged to home. Vital signs were stable, activity was good, oral intake adequate, and pain controlled. OBJECTIVE: VITAL SIGNS: Alejandra Aguero is a 42-year-old female, height is 5 feet 2.99 inches, weight is 163 pounds, TPR is 97.9, 94, 16, blood pressure 143/84. HEENT: Negative. NECK: Supple. HEART: Regular rate and rhythm. LUNGS: Clear. ABDOMEN: Incisions look good, 4 x 4 over MAGDY drain site. Abdominal binder is on. EXTREMITIES: Without peripheral edema. DISPOSITION: Discharged to home. CONDITION: Stable and improving. FOLLOWUP APPOINTMENT: Tia Humphreys PA-C, at [facility] on 03/10/2018 at 10:00 a.m. MEDICATIONS: New prescriptions: 1. Tylenol 650 mg q.4 hours p.r.n. pain. 2. Dilaudid 2 mg 1 to 2 every 4 hours p.r.n. severe pain, #30. To resume home medications: 1. Excedrin Tension Headache 1 tablet oral daily. 2. B12 1000 mcg oral daily. 3. Vitamin D2 50,000 international units as directed. 4. Multivitamin 1 tablet b.i.d. 5. Aleve discontinued. 6. Imitrex 100 mg oral as directed p.r.n. headache. 7. Flomax 0.4 mg oral daily. 8. Prednisone per tapering dose. DIET AFTER DISCHARGE: Usual diet as tolerated. Drink 8 to 10 glasses of water a day. ACTIVITY: As tolerated. No lifting greater than 10 pounds for 2 weeks. Driving: Do not drive on pain medication. May shower. DISCHARGE INSTRUCTIONS: Notify provider if any fever, increased pain, nausea, or vomiting. Keep site clean and dry. Wear abdominal binder for 2 weeks and then as tolerated. Use incentive spirometer 10 times every hour while awake for 1 week.
--- NOTE | 2018-03-06 08:08 | OR ---
DATE OF PROCEDURE: 03/02/2018 PREOPERATIVE DIAGNOSIS: Subacute and chronic cholecystitis. POSTOPERATIVE DIAGNOSES: 1. Subacute and chronic cholecystitis. 2. Enlarged toro hepatis lymph node. OPERATIVE PROCEDURE: 1. Diagnostic laparoscopy with cholecystectomy (07243). 2. Excision of enlarged toro hepatis lymph node (52327). ANESTHESIA: General. LEASING MACHINE TENDER: Tia Humphreys PA-C. INDICATION FOR PROCEDURE: This is a 42-year-old presenting with right upper quadrant abdominal pain. Workup eventually confirmed what appeared to be an acute or subacute cholecystitis. The patient is to undergo cholecystectomy at this time. Potential risks including bleeding, infection, injury to underlying viscera, as well as possibility of migration of stones in the common bile duct requiring additional procedures for correction, and lastly, remote possibility of cardiopulmonary, septic, or hemorrhagic complications leading to were discussed, and the patient wishes to proceed. DETAILS OF PROCEDURE: The patient was taken to the operating room and placed in a supine position. After general endotracheal anesthesia was induced, the abdomen was prepped and draped. A transverse epigastric incision was made and the peritoneal cavity entered under direct vision with an Optiview trocar inflated to 15 mmHg pressure of CO2. Laparoscope was reinserted. No underlying trocar insertion site injuries were seen. Following this, a transverse subumbilical incision was made and a 12 mm trocar placed there, along with 5 mm right upper quadrant trocar. The gallbladder was retracted anteriorly and laterally in the area of toro hepatis, more or less along the area of the common hepatic duct. The patient noted to have a somewhat enlarged lymph node. To confirm that nothing other than inflammation was going on in this case, that lymph node was then freed up using Harmonic scalpel and delivered from the field for histologic evaluation. The gallbladder itself was quite edematous and consistent with subacute cholecystitis. The gallbladder was retracted anteriorly and laterally, and dissection began around the gallbladder neck and continued around the gallbladder neck/cystic duct junction. Once that area, along with the adjacent cystic artery were both identified, both structures were clipped proximally 3 times and then distally and then divided. The gallbladder was dissected off the gallbladder bed using Harmonic scalpel. The patient had quite a bit of oozing in the area of the cystohepatic triangle related to inflammation in that area. All the bleeding appeared to be stopped with the aid of some electrocautery, and we then reinforced that area with some fibrin sealant. A 10-Tamazight Bassam-Carmen drain was then placed through the right lateral trocar site and placed into the area of gallbladder bed. Bilateral subcostal transversus abdominis plane blocks were then placed with direct visualization of the needle on each side and injection of the standard solution bilaterally. The trocars were then removed. The peritoneal cavity was deflated. The fascia at the 12 mm sites was closed with 0 Vicryl stitch and the skin with 4-0 Vicryl skin stitch. Dressing was applied. The patient was taken to the recovery room in satisfactory condition. Physician store assistant, Tia Humphreys, played an essential role in assisting in this case, helping to position the patient, retract structures as needed, as well as suturing and cutting sutures as needed. Her presence improved patient safety and decreased operative time as indicated. Torin Aguilar MD /[id number]
[2018-03-06] MEDS ORDERED: predniSONE 10 MG Tab PO SCH (09:00)
== END 2018-03-03 08:52 | disposition home or self-care (01) | DRG 263 ==
LOC: JP.2SS 12:25
PROVIDERS: ADMIT Surgery; ATTEND Surgery
PROC: 0FT44ZZ Resection of Gallbladder, Percutaneous Endoscopic Approach (ICD-10-PCS; principal; 2018-03-02)
PROC: 3E0T3BZ Introduction of Anesthetic Agent into Peripheral Nerves and Plexi, Percutaneous Approach (ICD-10-PCS; 2018-03-02)
PROC: 07BC4ZX Excision of Pelvis Lymphatic, Percutaneous Endoscopic Approach, Diagnostic (ICD-10-PCS; 2018-03-02)
DX: K81.0 Acute cholecystitis (principal); R59.0 Localized enlarged lymph nodes; K91.2 Postsurgical malabsorption, not elsewhere classified; I10 Essential (primary) hypertension; Z98.84 Bariatric surgery status; E55.9 Vitamin D deficiency, unspecified; M06.9 Rheumatoid arthritis, unspecified; E53.8 Deficiency of other specified B group vitamins; Z87.440 Personal history of urinary (tract) infections; L23.7 Allergic contact dermatitis due to plants, except food; E78.2 Mixed hyperlipidemia; Z91.040 Latex allergy status; Z88.8 Allergy status to other drugs, medicaments and biological substances; Z79.52 Long term (current) use of systemic steroids; Z91.048 Other nonmedicinal substance allergy status
CPT/HCPCS: 36415; 74177; 74177-26; 78227; 78227-26; 80053; 83690; 83735; 84100; 85025; 86140; 94762; A9270-GY; C9113; J0171; J0287; J1100; J1170; J2060; J2250; J2405; J2704; J2710; J2765; J2795; J2930; J3010; J3411; J3475; J3490; J7030; J7042; J7050; J7120; J7189; Q9965; Q9967; S0073